=== PATIENT | male | born 1975 | race Two or more races ===

== ENCOUNTER 2017-06-09 08:44 | Emergency (ER) | payer SELFPAY ==
[~2017-06-09] VITALS: Ht 180.3 cm; Wt 90.7 kg
[2017-06-09] MEDS ORDERED: IBUPROFEN600 MG ORAL (09:40)
--- NOTE | 2017-06-09 10:59 | Diagnostic Imaging Report ---
Indications: Left femur pain Technique: Two views of the left femur Comparison: None Findings: No acute fractures. No dislocations. Joint spaces are preserved. No radiopaque foreign body Impression: Negative
--- NOTE | 2017-06-09 11:00 | Diagnostic Imaging Report ---
Indication: PAIN left lower leg pain Technique: 2 views of the left tibia and fibula Comparison: none Findings: No acute fractures. No dislocations. Joint spaces are preserved. No radiopaque foreign body. Impression: Negative
--- NOTE | 2017-06-09 11:01 | Diagnostic Imaging Report ---
Indication: PAIN Technique: 3 views of the left ankle Comparison: none Findings: No acute fractures. No dislocations. Joint spaces are preserved. Normal mineralization. No radiopaque foreign body. Impression: Negative
[2017-06-09 11:18] VITALS: BP 133/78
--- NOTE | 2017-06-09 15:06 | Diagnostic Imaging Report ---
Indication: PAIN Technique: 3 views right hand Comparison: none Findings: No acute fractures. No dislocations. Joint spaces are preserved Impression: Negative
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
== END 2017-06-09 11:20 | disposition home or self-care (01) ==
LOC: EDBD 08:44 → EMR 09:00
DX: S80.12XA Contusion of left lower leg, initial encounter (principal); S60.221A Contusion of right hand, initial encounter; S70.312A Abrasion, left thigh, initial encounter; V09.9XXA Pedestrian injured in unspecified transport accident, initial encounter; Y93.55 Activity, bike riding; Y92.410 Unspecified street and highway as the place of occurrence of the external cause
CPT/HCPCS: 99284